=== PATIENT | female | born 1930 | race Hispanic/Latino ===

== ENCOUNTER → 2017-04-07 | Outpatient (CLI) | payer MEDICARE ==
--- NOTE | 2017-04-07 16:48 | Diagnostic Imaging Report ---
PROCEDURE:X-RAY LEFT FOOT, COMPLETE COMPARISON:None. INDICATIONS:WOUND ON LEFT HEEL FINDINGS: The bones are diffusely demineralized. There are no fractures, dislocations, lytic or blastic lesions. No periosteal new bone formation. There are degenerative changes of the distal IP joints of digits 2 through 5. There is a tiny plantar calcaneal spur. The soft-tissues are unremarkable. CONCLUSION: No radiographic evidence of osteomyelitis. Bone scan and MRI are more sensitive modalities to identify osteomyelitis. Dictated by: Mayte Montero M.D. on 04/07/2017 at 16:56 Electronically approved by: Mayte Montero M.D. on 04/07/2017 at 16:56
--- NOTE | 2017-04-07 16:55 | Diagnostic Imaging Report ---
PROCEDURE:X-RAY LEFT HEEL COMPARISON:None. INDICATIONS:WOUND ON LEFT HEEL FINDINGS: The bones are diffusely demineralized. There is a soft tissue ulceration along the posterior aspect of the heel. The underlying calcaneus demonstrates subtle erosion without sclerosis or periosteal new bone formation. There is no evidence of fracture. A small plantar calcaneal spur is present. The visualized joint spaces are well-maintained. There are no radiopaque foreign bodies. CONCLUSION: Subtle, erosive changes of the calcaneal cortex deep to the soft tissue ulcer suggestive of osteomyelitis. MRI or three-phase bone scan can be performed for confirmation. Dictated by: Mayte Montero M.D. on 04/07/2017 at 17:02 Electronically approved by: Mayte Montero M.D. on 04/07/2017 at 17:02
== END ==
LOC: RAD 15:33
PROVIDERS: ATTEND Podiatrist Foot & Ankle Surgery
DX: L89.620 Pressure ulcer of left heel, unstageable (principal)

== ENCOUNTER 2017-04-13 08:18 | Outpatient (RCR) | payer MEDICARE ==
[~2017-04-13 08:18] MED LIST: COLLAGENASE OINTMENT 30 GM TUBE ONE; LIDOCAINE VISC 2% SOLN 15 ML UDC ONE
== END 2017-04-18 ==
LOC: WCC 08:18
PROVIDERS: ATTEND Podiatrist Foot & Ankle Surgery
DX: L89.620 Pressure ulcer of left heel, unstageable (principal); F03.90 Unspecified dementia, unspecified severity, without behavioral disturbance, psychotic disturbance, mood disturbance, and anxiety; F05 Delirium due to known physiological condition; M19.91 Primary osteoarthritis, unspecified site; Z74.01 Bed confinement status
CPT/HCPCS: 87071; 87075; 87186; 87205

== ENCOUNTER → 2017-04-23 | Outpatient (CLI) | payer MEDICARE ==
[2017-04-23 09:58] LABS: BLOOD UREA NITROGEN 9 mg/dL (7-26); BUN/CREATININE RATIO 11 (6-25); CREATININE, SERUM 0.79 mg/dL (0.57-1.11); EST GLOMERULAR FILTRATION RATE > 60 ML/MIN (60-)
== END ==
LOC: DX 08:48
PROVIDERS: ATTEND Internal Medicine Infectious Disease
DX: M86.9 Osteomyelitis, unspecified (principal)
CPT/HCPCS: 36415; 82565; 84520

== ENCOUNTER → 2017-04-28 | Outpatient (CLI) | payer MEDICARE ==
--- NOTE | 2017-04-28 18:34 | Diagnostic Imaging Report ---
PROCEDURE: A single AP view of the chest. Additional AP image of the left arm is included COMPARISON: None. INDICATIONS: EVALUATE FOR PRE PICC LINE INSERTION FINDINGS: See impression. IMPRESSION: 1. lungs are well-inflated. Minimal bibasilar atelectatic changes. No consolidation. No pleural effusion. 2. No radiopaque catheters are identified in the chest or left arm. 3. Cardiac silhouette is unremarkable. Prominent pulmonary arteries. 4. No acute bony abnormalities. Generalized osteopenia. 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 5. 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 Jeyson Arredondo M.D. Dictated by: Jeyson Arredondo M.D. on 04/28/2017 at 18:42 Electronically approved by: Jeyson Arredondo M.D. on 04/28/2017 at 18:42
== END ==
LOC: DX 15:06
PROVIDERS: ATTEND Internal Medicine Infectious Disease
DX: M86.9 Osteomyelitis, unspecified (principal)
CPT/HCPCS: 71010

== ENCOUNTER 2017-05-18 07:30 | Outpatient (RCR) | payer MEDICARE ==
[~2017-05-18 07:30] MED LIST changes: -COLLAGENASE OINTMENT 30 GM TUBE ONE
[2017-05-18] MEDS ORDERED: LIDOCAINE VISC 2% SOLN 15 ML UDC ONE (16:46)
== END 2017-05-19 ==
LOC: WCC 07:30
PROVIDERS: ATTEND Podiatrist Foot & Ankle Surgery
DX: M86.172 Other acute osteomyelitis, left ankle and foot (principal); L89.620 Pressure ulcer of left heel, unstageable; B96.89 Other specified bacterial agents as the cause of diseases classified elsewhere; F03.90 Unspecified dementia, unspecified severity, without behavioral disturbance, psychotic disturbance, mood disturbance, and anxiety; F05 Delirium due to known physiological condition; M19.91 Primary osteoarthritis, unspecified site; Z74.01 Bed confinement status

== ENCOUNTER 2017-06-15 08:03 | Outpatient (RCR) | payer MEDICARE ==
[2017-06-15] MEDS ORDERED: LIDOCAINE VISC 2% SOLN 15 ML UDC ONE (15:21)
== END 2017-06-16 ==
LOC: WCC 08:03
PROVIDERS: ATTEND Podiatrist Foot & Ankle Surgery
DX: L89.620 Pressure ulcer of left heel, unstageable (principal); M86.172 Other acute osteomyelitis, left ankle and foot; B96.89 Other specified bacterial agents as the cause of diseases classified elsewhere; F03.90 Unspecified dementia, unspecified severity, without behavioral disturbance, psychotic disturbance, mood disturbance, and anxiety; F05 Delirium due to known physiological condition; M19.91 Primary osteoarthritis, unspecified site; Z74.01 Bed confinement status

== ENCOUNTER 2017-07-13 09:57 | Outpatient (RCR) | payer MEDICARE ==
[~2017-07-13 09:57] MED LIST changes: +HYDROMORPHONE 1MG/1ML INJ ONE
== END 2017-07-17 ==
LOC: WCC 09:57
PROVIDERS: ATTEND Podiatrist Foot & Ankle Surgery
DX: L89.620 Pressure ulcer of left heel, unstageable (principal); M86.172 Other acute osteomyelitis, left ankle and foot; B96.89 Other specified bacterial agents as the cause of diseases classified elsewhere; F03.90 Unspecified dementia, unspecified severity, without behavioral disturbance, psychotic disturbance, mood disturbance, and anxiety; F05 Delirium due to known physiological condition; M19.91 Primary osteoarthritis, unspecified site; Z74.01 Bed confinement status
CPT/HCPCS: J1170

== ENCOUNTER 2017-07-20 06:56 | Outpatient (RCR) | payer MEDICARE | END 2017-08-16 | LOC: WCC 06:56 | PROVIDERS: ATTEND Podiatrist Foot & Ankle Surgery | DX: T81.89XA Other complications of procedures, not elsewhere classified, initial encounter (principal); W29.8XXA Contact with other powered hand tools and household machinery, initial encounter; F15.10 Other stimulant abuse, uncomplicated ==